=== PATIENT | male | born 2000 | race Caucasian/White ===

== ENCOUNTER 2021-02-09 12:17 | Emergency (ER) | payer OTHER, SELFPAY ==
--- NOTE | ~2021-02-09 | CT_ITS ---
EXAMINATION: CT ABDOMEN AND PELVIS WITH CONTRAST CLINICAL INFORMATION: Right-sided abdominal pain. COMPARISON: None TECHNIQUE: Multidetector volumetric images were obtained from the superior aspect of the liver through the pubic symphysis following administration 85 mL of Omnipaque 350 intravenous contrast. Sagittal and coronal reformatted images were obtained on the technologist's workstation. Oral contrast: No This CT examination was performed using dose optimization techniques as appropriate, variously including the following: *Automated exposure control *Adjustment of mA and/or kV according to patient size (this includes techniques or standardized protocols for targeted exams where dose is matched to indication/reason for exam; i.e. extremities or head) *Use of iterative reconstruction technique DLP: 536 mGy-cm FINDINGS: LUNG BASES: The heart size is normal. The lung bases are clear. LIVER, GALLBLADDER, AND BILIARY TREE: The liver is normal in size, shape, and attenuation. No focal hepatic lesion or biliary ductal dilatation is present. The gallbladder is unremarkable with no evidence of radiopaque gallstones, gallbladder wall thickening, or obvious pericholecystic inflammatory changes. PANCREAS: Unremarkable. SPLEEN: Unremarkable. ADRENAL GLANDS: Unremarkable. KIDNEYS AND URETERS: The kidneys are normal in size, shape, and attenuation. No hydronephrosis, hydroureter, or calculi seen. No perinephric stranding. BLADDER: The urinary bladder is distended with no radiopaque calculi. GASTROINTESTINAL TRACT: There is scattered stool and gas seen ascending and transverse colon without distention. The small bowel loops are normal caliber. Appendix is not seen with certainty. There is no obstruction or inflammatory process seen. ABDOMINAL WALL: A small hiatal hernia containing fat is noted. LYMPH NODES: Normal. VASCULAR: Unremarkable. PELVIC VISCERA: The prostate is normal size. The periprostatic fat planes are preserved. No abnormal pelvic or inguinal lymph nodes seen. OSSEOUS STRUCTURES: No lytic or sclerotic process seen. CT/CT abdomen pelvis w con IMPRESSION: Mild constipation with most of the stool in the right abdomen. No obstruction seen. Appendix not seen. Distended urinary bladder with mild prostate enlargement. No radiopaque urolith or hydroureteronephrosis. Mildly dilated urinary bladder.
[2021-02-09 12:20] VITALS: BP 115/76; PULSE 79; RESP 18; TEMP 36.5; O2SAT 99; BMI 27.4
--- NOTE | 2021-02-09 13:00 | ED.ABDPAIN ---
HPI - Abdominal Pain General Chief Complaint: Abdominal Pain Stated Complaint: Abd pain Time Seen by Provider: 02/09/21 12:58 Source: patient Mode of arrival: ambulatory Limitations: no limitations History of Present Illness HPI narrative: THIS IS A 21 YEARS OLD MALE PRESENTED TO THE EMERGENCY DEPARTMENT COMPLAINING OF LOWER ABDOMINAL PAIN SINCE YESTERDAY DENIES THAT THE VOMITING ANY DIARRHEA MD elicited complaint: abdominal pain Pertinent past history: none Onset (ago): day(s) (1) Pain Consistency: constant Location: RLQ and LLQ Severity: moderate Quality: cramping Radiation: LLQ and RLQ Migration to: no migration Exacerbating factors: nothing Relieving factors: nothing Related Data Allergies Allergy/AdvReac Type Severity Reaction Status Date / Time No Known Allergies Allergy Verified 02/09/21 12:19 Review of Systems Review of Systems Yes all other systems are reviewed and are negative Constitutional: Reports no additional constitutional complaints Reports system reviewed and no additional complaints, except as documented Cardiovascular: Denies chest pain Respiratory: Denies cough Gastrointestinal: Reports no additional gastrointestinal complaints Musculoskeletal: Reports no additional musculoskeletal complaints Skin/Breast: Reports system reviewed and no additional complaints, except as docu Reports system reviewed and no additional complaints, except as documented Psychiatric: Reports no additional psychiatric complaints Endocrine: Reports no additional endocrine complaints Physical Exam Vital Signs: Vital Signs: Last Vital Signs Temp 97.7 F 02/09/21 12:20 Pulse 81 02/09/21 15:10 Resp 16 02/09/21 15:10 BP 122/69 02/09/21 15:10 Pulse Ox 100 02/09/21 15:10 Body Mass Index 27.4 Const: General: cooperative and healthy appearing HENMT: Head: Yes normal to inspection Face and sinus: Yes normal facial exam Mouth: Normal oral and palatal mucosa present Neck: Neck: Yes normal visual inspection Chest: Chest palpation & inspection: normal inspection of the chest Resp: Effort & Inspection: normal respiratory effort Auscultation: clear to auscultation bilaterally Cardio: Jugular venous distension: no JVD Rhythm: regular rhythm GI: Inspection: Yes normal to inspection Palpation (GI): Soft to palpation, not firm, nontender and no guarding Auscultation: normal bowel sounds Course Course Course Narrative: still c/o pain ct negative at this time will sign out to Dr Lim Discharge Plan Discharge Clinical Impression: Abdominal pain PMFSH Past Medical History PMFSH Narrative: PATIENT DENIES ANY MAJOR MEDICAL PROBLEM HE DOES NOT TAKE ANY MEDICINES Medical History Asthma Social History Social History Patient Tobacco Use Status: Never used Tobacco Smoked in Last 30 Days: No Use of substances other than those prescribed or required for medical reasons: No Advance Directives: No Advance Directives Information Provided: No
[2021-02-09] MEDS: Morphine Sulfate 4 MG/ML CARTRIDGE IVPUSH (13:29)
[2021-02-09] MEDS: 0.9 % Sodium Chloride 1,000 ML 999 ML IVCONT (13:30)
[2021-02-09 13:44] LABS: MANUAL DIFF FLAG NO
[2021-02-09 13:49] LABS: Basophils Absolute Auto 0.1 X10*3/uL (0.0-0.2); Basophils Percent Auto 0.5 % (0-2); Eosinophils Absolute Auto 0.4 X10*3/uL (0.0-0.4); Eosinophils Percent Auto 3.8 % (0-4); Hematocrit 43.6 % (42-52); Imm Gran Abs Auto 0.05 X10*3/uL (0.00-0.03); Imm Gran Pct Auto 0.5 % (0.0-0.4); Lymphocytes Absolute Auto 1.8 X10*3/uL (1.2-4.9); Lymphocytes Percent Auto 16.9 % (20-40); Mean Corpuscular HGB Conc 34.4 g/dl (31.0-36.0); Mean Corpuscular Volume 87.2 fL (80-98); Mean Platelet Volume 10.2 fL (9.4-12.4); Monocytes Percent Auto 9.8 % (2-11); Neutrophils Absolute Auto 7.1 X10*3/uL (2.0-8.3); Neutrophils Percent Auto 68.5 % (45-73); Platelet Count 224 X10*3/uL (160-400); Red Cell Distribution Width 12.1 % (11.0-16.0); White Blood Count 10.4 X10*3/uL (4.8-10.8)
[2021-02-09 13:52] LABS: Glucose Urine UA NEG (NEG); Leukocyte Esterase Urine NEG (NEG); Nitrite Urine NEG (NEG); PH 7.5 (5.0-8.0); UACC Culture Trigger NO; Urine Blood 1+ (NEG); Urine Ketones NEG (NEG); Urine Protein NEG (NEG-TRACE)
[2021-02-09 14:08] LABS: Alanine Aminotransferase 20 U/L (0-40); Albumin Level 4.9 g/dL (3.5-5.0); Alkaline Phosphatase 79 U/L (39-117); Anion Gap 14 (12-20); Aspartate Amino Transferase 16 U/L (5-37); Bilirubin Total 0.5 mg/dL (0.0-1.0); Blood Urea Nitrogen 10 mg/dL (9-16); Calcium 9.6 mg/dL (8.4-10.2); Carbon Dioxide 26 mmol/L (22-29); Chloride 103 mmol/L (96-108); Creatinine Clr Calc Pharmacy 123.4; Estimated Glomerular Filt Rate > 60; Glucose Random 91 mg/dL (60-115); Lipase 14 U/L (8-78); Potassium 4.1 mmol/L (3.3-5.1); Sodium 139 mmol/L (135-145); Total Protein 7.8 g/dL (6.5-8.0)
[2021-02-09 14:12] LABS: Appearance Urine HAZY; Color Urine YELLOW
[2021-02-09 14:14] LABS: Mucus Urine 1+ /LPF; WBC Urine 0 /HPF (0-4)
[2021-02-09] MEDS: iohexoL 350 MG/ML 100 ML INFUS..BTL IV (14:47)
[2021-02-09 15:10] VITALS: BP 122/69; PULSE 81; RESP 16; O2SAT 100
--- NOTE | 2021-02-09 15:13 | PC.NURSE ---
PT RPOS PAIN/ NAUSEA RESOLVED WITH MOP. WAITITNG ON CT RESULTS. PT AWARE OF PLAN FOR CARE. VSS
[2021-02-09] MEDS: Magnesium Hydrox/Alum Hydrox 30 ML ORAL.SUSP PO (16:39)
[2021-02-09] MEDS: Pantoprazole Sodium 40 MG/10 ML VIAL IVPUSH (16:39)
== END 2021-02-09 18:13 | disposition home or self-care (01) ==
PROVIDERS: Emergency Medicine; Emergency Provider Emergency Medicine Emergency Medical Services
DX: K29.70 Gastritis, unspecified, without bleeding (principal)
CPT/HCPCS: 36415; 74177; 80053; 81001; 83690; 85025; 96361; 96374; 96375; 99284; J2270; J2405; Q9967

== ENCOUNTER 2021-09-23 10:57 | Emergency (ER) | payer OTHER, SELFPAY ==
[2021-09-23 12:08] VITALS: BP 147/61; PULSE 72; RESP 19; TEMP 37.1; O2SAT 97; BMI 26.9
[2021-09-23 13:31] LABS: Appearance Urine CLEAR; Color Urine YELLOW; Glucose Urine UA NEG (NEG); Leukocyte Esterase Urine NEG (NEG); Nitrite Urine NEG (NEG); PH 5.5 (5.0-8.0); Specific Gravity - Urine >= 1.030 (1.005-1.025); UACC Culture Trigger NO; Urine Blood 2+ (NEG); Urine Ketones NEG (NEG); Urine Protein NEG (NEG-TRACE)
[2021-09-23 13:51] LABS: WBC Urine 0 /HPF (0-4)
== END 2021-09-23 15:32 | disposition left against medical advice (07) ==
PROVIDERS: Emergency Provider Emergency Medicine
DX: R10.9 Unspecified abdominal pain (principal)
CPT/HCPCS: 81001; 99282; 99283

== ENCOUNTER 2021-12-19 07:53 | Emergency (ER) | payer OTHER, SELFPAY ==
--- NOTE | 2021-12-19 08:22 | ED.GENADULT ---
HPI - General Adult General Chief complaint: Upper Respiratory Symptoms Stated complaint: sore throat , weakness, body aches, fever Time Seen by Provider: 12/19/21 08:17 Source: patient Mode of arrival: ambulatory Limitations: no limitations History of Present Illness HPI narrative: 21 y/o male presents to the ER for evaluation of sore throat, generalized weakness, body aches and subjective fever that started last night. He denies any known sick contacts. He is vaccinated for COVID. He feels like his throat is closing because of the pain. It hurts to swallow and eat. He has been able to drink oral fluids. He denies any cough, shortness of breath, chest pain. No nausea, vomiting, diarrhea or abdominal pain. MD complaint: Sore throat Onset (ago): day(s) (1) Location: mouth Radiation: non-radiation Severity: moderate Severity scale (1-10): 6 Quality: stabbing and aching Pain Consistency: constant Relieving factors: none Exacerbating factors: eating Associated symptoms: fever/chills, headaches, loss of appetite, malaise and weakness Treatments prior to arrival: none Related Data Previous Rx's Medication Instructions Recorded amoxicillin 500 mg tablet 500 mg PO Q12H 10 days #20 tabs 12/19/21 Allergies Allergy/AdvReac Type Severity Reaction Status Date / Time No Known Allergies Allergy Verified 02/09/21 12:19 Review of Systems Review of Systems: Constitutional: + Fever, + Chills ENT/Mouth: + sore throat, No Rhinorrhea, + Swallowing Difficulty Eyes: No Eye Pain, No Swelling, No Redness Cardiovascular: No Chest Pain, No SOB, No Orthopnea, No Edema Respiratory: No Cough, No Sputum, No Wheezing, No dyspnea Gastrointestinal: No Nausea, No Vomiting, No Diarrhea, No abdominal Pain Genitourinary: No Dysuria, No Urinary Frequency, No Hematuria Musculoskeletal: No joint pain, + Myalgias Skin: No Skin Lesions, No rash Neuro: +Weakness, No Numbness, No Dizziness, + Headache Heme/Lymph: No Bruising, No Lymphadenopathy PMFSH Past Medical History Medical History Asthma Social History Social History Patient Tobacco Use Status: Never used Tobacco Advance Directives: No Advance Directives Information Provided: No Physical Exam ED Vital Signs: Vital Signs - 24 hr 12/19/21 08:43 Temperature 99.1 F Pulse Rate 95 Respiratory Rate 16 Blood Pressure 145/77 H Pulse Oximetry 99 Oxygen Delivery Method Room Air BMI result Body Mass Index 28.3 Appearance: Alert. Oriented X3. No acute distress. Eyes: Pupils equal, round and reactive to light. ENT: Pharynx with moist mucous membranes. There is bilateral tonsillar enlargement and erythema without exudate. Uvula is midline. Normal voice and handling secretions normally. Neck: Normal inspection. Neck supple. No lymphadenopathy. CVS: Normal heart rate and rhythm. Pulses normal. Respiratory: No respiratory distress. Breath sounds normal. Skin: Skin warm and dry. Normal skin color. Normal skin turgor. No rashes. Extremities: No lower extremity edema. Neuro: Oriented X 3. Grossly normal, nonfocal Course Course Course Narrative: 21-year-old otherwise healthy male presents to the ER with sore throat, body aches, weakness and subjective fevers that started last night. On arrival to the ER he is afebrile, SpO2 99% on room air. His examination is consistent with streptococcal pharyngitis. Will swab for strep, will also check for COVID and influenza. He has been ordered for lidocaine and Motrin for his pain. He is able to tolerate p.o.. Reevaluation(s) Reevaluation #1: Strep is positive. Negative for COVID and flu. Stable for discharge home on p.o. amoxicillin. Medical Decision Making Lab Data Labs: Lab Results 12/19/21 12/19/21 12/19/21 Range/Units 08:33 08:33 08:33 COVID-19 (JAMES) Negative (Negative) COVID-19 Clin Com See Note Influenza Type A (DAMION) Negative (Negative) Influenza Type B (DAMION) Negative (Negative) Influenza A & B Note See Note S. pyogenes GrpA DAMION Positive A (Negative) Discharge Plan Discharge Clinical Impression: Acute streptococcal pharyngitis Patient Disposition: Home, Self-Care Instructions: Strep Throat (ED) Additional Instructions: You tested positive for Strep throat. Take the prescribed antibiotic as directed, complete the entire course. Use warm salt water gargles several times per day Recommend over the counter Chloraseptic spray or Cepacol lozenges to help numb the back of your throat Take Motrin and/or Tylenol as needed for fevers, pain and body aches Rest and drink plenty of fluids. If you develop new or worsening symptoms call 911 or come back to the ER for further evaluation. Prescriptions: New amoxicillin 500 mg tablet 500 mg PO Q12H 10 Days Qty: 20 0RF Stand Alone Forms: Work/School Release Interventions: ED Discharge Assessment Last Done: 12/19/21 09:21 Discharge Date/Time: 12/19/21 09:22
[2021-12-19 08:43] VITALS: BP 145/77; PULSE 95; RESP 16; TEMP 37.3; O2SAT 99; BMI 28.3
[2021-12-19 08:46] LABS: Strep A Nucleic Acid Positive (Negative)
[2021-12-19 08:59] LABS: COVID-19 Test Negative (Negative); IDNOW Serial# 55D5AD1C; IDNOW Serial# 9DB6401D
[2021-12-19 09:00] LABS: Influenza A Negative (Negative); Influenza B2 Negative (Negative)
[2021-12-19] MEDS: Amoxicillin 500 MG CAPSULE PO (09:01)
[2021-12-19] MEDS: Ibuprofen 600 MG TABLET PO (09:01)
[2021-12-19] MEDS: Lidocaine HCl Viscous 2 % 15 ML SOLUTION MUCOUS MEM (09:01)
== END 2021-12-19 09:22 | disposition home or self-care (01) ==
PROVIDERS: Physician Assistant; Emergency Provider Emergency Medicine
DX: J02.0 Streptococcal pharyngitis (principal); Z20.822 Contact with and (suspected) exposure to COVID-19; R50.9 Fever, unspecified
CPT/HCPCS: 87502; 87635; 87651; 99283

== ENCOUNTER 2022-09-21 10:57 | Emergency (ER) | payer OTHER, SELFPAY ==
--- NOTE | ~2022-09-21 | XR_ITS ---
EXAMINATION: XR CHEST CLINICAL INFORMATION: Productive cough COMPARISON: None TECHNIQUE: 2 views of the chest were obtained. FINDINGS: No significant abnormality is noted involving the heart, lungs, mediastinum, bony thorax or soft tissues. XR/XR chest 2V IMPRESSION: Unremarkable examination.
[2022-09-21 11:04] VITALS: BP 126/63; PULSE 73; RESP 16; TEMP 36.3; O2SAT 98; BMI 28.3
--- NOTE | 2022-09-21 11:06 | ED.URI ---
HPI - URI/Sore Throat General Chief Complaint: Upper Respiratory Symptoms <JOSIE Julien - Last Filed: 09/21/22 11:10> Stated Complaint: Blood in mucus <JOSIE Julien - Last Filed: 09/21/22 11:10> Time Seen by Provider: 09/21/22 11:46 <JOISE Julien - Last Filed: 09/21/22 11:10> Source: patient <JOSIE Castillo - Last Filed: 09/21/22 16:42> Mode of arrival: ambulatory <JOSIE Castillo Last Filed: 09/21/22 16:42> Limitations: no limitations <JOSIE Castillo Last Filed: 09/21/22 16:42> History of Present Illness HPI Narrative: 22 y.o male with a PMHx of asthma who presents to the ED c/o productive cough and nasal congestion x3 weeks with intermittent blood streaks in sputum x3 days. Endorses some chest pain associated with coughing. Denies fevers, chills, body aches, chest pain, SOB, abdominal pain, vomiting, diarrhea, or known sick contacts. Endorses recent travel to [place] but symptoms started prior to trip. <JOSIE Castillo - Last Filed: 09/21/22 16:42> MD elicited complaint: cough <JOSIE Castillo - Last Filed: 09/21/22 16:42> Onset (ago): week(s) <JOSIE Castillo Last Filed: 09/21/22 16:42> Related Data Home Medications: Previous Rx's Medication Instructions Recorded amoxicillin 500 mg tablet 500 mg PO Q12H 10 days #20 tabs 12/19/21 benzonatate 100 mg capsule 100 mg PO TID PRN cough #14 caps 09/21/22 fluticasone propionate 50 2 spray intranasal DAILY #16 grams 09/21/22 mcg/actuation nasal spray,suspension (Flonase Allergy Relief) prednisone 20 mg tablet 40 mg PO DAILY 5 days #10 tabs 09/21/22 <JOSIE Julien Last Filed: 09/21/22 11:10> Allergies/Adverse Reactions: Allergies Allergy/AdvReac Type Severity Reaction Status Date / Time No Known Allergies Allergy Verified 02/09/21 12:19 <JOSIE Julien - Last Filed: 09/21/22 11:10> Review of Systems Review of Systems: Constitutional: No Fever, No Chills ENT/Mouth: No Ear Pain, +Nasal Congestion, No Sinus Pain, No Hoarseness, No sore throat, +Rhinorrhea Cardiovascular: +Chest Pain associated with coughing, No SOB Respiratory: +Cough, +Sputum with intermittent blood streaks, No Wheezing Gastrointestinal: No Nausea, No Vomiting, No Diarrhea, No Constipation, No Abdominal pain Genitourinary: No Dysuria, No Urinary Frequency, No Hematuria Musculoskeletal: No Joint Pain, No Myalgias Skin: No Skin Lesions, No rash Neuro: No Weakness, No Numbness, No Paresthesias <JOSIE Castillo - Last Filed: 09/21/22 16:42> Yes all other systems are reviewed and are negative <JOSIE Castillo - Last Filed: 09/21/22 16:42> Constitutional: Constitutional: Reports as per HPI <JOSIE Castillo - Last Filed: 09/21/22 16:42> [facility] Past Medical History Attestation statement: The following information was validated with the patient. <JOSIE Castillo - Last Filed: 09/21/22 16:42> Medical History: Medical History Asthma <JOSIE Julien - Last Filed: 09/21/22 11:10> Social History Social History: Social History Patient Tobacco Use Status: Never used Tobacco Advance Directives: No Advance Directives Information Provided: No <JOSIE Julien - Last Filed: 09/21/22 11:10> Physical Exam Vital Signs: Vital Signs: Last Vital Signs Temp 97.4 F 09/21/22 11:04 Pulse 73 09/21/22 11:04 Resp 16 09/21/22 11:04 BP 126/63 09/21/22 11:04 Pulse Ox 98 09/21/22 11:04 O2 Del Method 09/21/22 11:04 BMI result Body Mass Index 28.3 <JOSIE Julien Last Filed: 09/21/22 11:10> Vital Signs: Last Vital Signs Temp 97.4 F 09/21/22 11:04 Pulse 73 09/21/22 11:04 Resp 16 09/21/22 11:04 BP 126/63 09/21/22 11:04 Pulse Ox 98 09/21/22 11:04 O2 Del Method 09/21/22 11:04 BMI result Body Mass Index 28.3 <JOSIE Castillo - Last Filed: 09/21/22 16:42> Const: General: cooperative, healthy appearing and no acute distress <JOSIE Castillo - Last Filed: 09/21/22 16:42> Orientation/consciousness: patient oriented x3 <JOSIE Castillo - Last Filed: 09/21/22 16:42> Limitations: no limitations <JOSIE Castillo Last Filed: 09/21/22 16:42> HEENT: Head: Yes normal to inspection and Yes atraumatic <JOSIE Castillo - Last Filed: 09/21/22 16:42> Ears: hearing grossly normal bilaterally and TM's normal bilaterally <JOSIE Castillo - Last Filed: 09/21/22 16:42> General nose exam: Normal external nose present <JOSIE Castillo Last Filed: 09/21/22 16:42> Face and sinus: Yes normal facial exam <JOSIE Castillo - Last Filed: 09/21/22 16:42> Throat: Yes posterior oropharynx normal (Mildly enlarged tonsils, no erythema/exudates), Yes uvula midline, No peritonsillar mass, No uvula laterally displaced and No uvular edema <JOSIE Castillo Last Filed: 09/21/22 16:42> Eyes: General: appearance normal, both eyes and all related structures <JOSIE Castillo - Last Filed: 09/21/22 16:42> Pupils: Equal, round and reactive pupils present <JOSIE Castillo Last Filed: 09/21/22 16:42> EOM: EOMs intact bilaterally <JOSIE Castillo - Last Filed: 09/21/22 16:42> Neck: Neck: Yes normal visual inspection and Yes no meningeal signs <JOSIE Castillo - Last Filed: 09/21/22 16:42> Resp: Effort & Inspection: normal respiratory effort and no respiratory distress <JOSIE Castillo - Last Filed: 09/21/22 16:42> Auscultation: clear to auscultation bilaterally, no crackles, no rales, no rhonchi and no wheezes <JOSIE Castillo - Last Filed: 09/21/22 16:42> Cardio: Rate: regular rate <JOSIE Castillo - Last Filed: 09/21/22 16:42> Heart sounds: S1 normal heart sound present and S2 normal heart sound present <JSOIE Castillo - Last Filed: 09/21/22 16:42> GI: Palpation (GI): Soft to palpation, not firm, nontender and no guarding <JOSIE Castillo - Last Filed: 09/21/22 16:42> Skin: Rashes: no rashes <JOSIE Castillo - Last Filed: 09/21/22 16:42> Wounds: no wounds <JOSIE Castillo - Last Filed: 09/21/22 16:42> Neuro: General: patient oriented x3, tone normal and no meningeal signs <JOSIE Castillo - Last Filed: 09/21/22 16:42> Cranial nerves: Yes Equal, round and reactive pupils present <JOSIE Castillo - Last Filed: 09/21/22 16:42> Gait exam (Neuro): Normal gait present <JOSIE Castillo - Last Filed: 09/21/22 16:42> Extrem: General: Yes normal to inspection, Yes no pedal edema and Yes no calf tenderness <JOSIE Castillo - Last Filed: 09/21/22 16:42> Course Course Course Narrative: RME - 22 yo healthy male presents to the ER for evaluation of blood tinged sputum for the last 2 weeks. He has been sick for almost 3 weeks with nasal congestion, runny nose, productive cough with blood tinged sputum. Has been taking Mucinex. VSS in triage. Lungs are clear. He appears well, nontoxic. PERC negative. No SOB or chest pain. Most likely bronchitis. Plan: CXR and COVID swab <JOSIE Julien - Last Filed: 09/21/22 11:10> RME - 22 yo healthy male presents to the ER for evaluation of blood tinged sputum for the last 2 weeks. He has been sick for almost 3 weeks with nasal congestion, runny nose, productive cough with blood tinged sputum. Has been taking Mucinex. VSS in triage. Lungs are clear. He appears well, nontoxic. PERC negative. No SOB or chest pain. Most likely bronchitis. Plan: CXR and COVID swab -1257--COVID-19 negative. CXR unremarkable Results discussed with patient including worrisome signs and symptoms and strict return precautions, and when to return to the emergency department. They verbalized understanding and feel safe for discharge at this time. <JOSIE Castillo - Last Filed: 09/21/22 16:42> Medical Decision Making Medical Decision Making MDM Narrative: 22 y.o male with a PMHx of asthma who presents to the ED c/o productive cough and nasal congestion x3 weeks with intermittent blood streaks in sputum x3 days. On physical exam patient was well-appearing, in NAD, VSS. Lungs clear to auscultation bilaterally. Posterior oropharynx without erythema or tonsilar exudates. Concern for bronchitis vs pneumonia vs viral syndrome. Low suspicion for ACS, PE, malignancy, TB. Plan: Covid test negative, CXR Please refer to course for remaining clinical decision making, interpretation of labs/imaging results, and discussions with consultants and/or family members. <JOSIE Castillo Last Filed: 09/21/22 16:42> Differential Diagnosis Differential Diagnoses: The differential diagnosis associated with the presentation includes <JOSIE Castillo Last Filed: 09/21/22 16:42> As above <JOSIE Castillo Last Filed: 09/21/22 16:42> Admission/Observation Consideration of admission/observation: Escalation of care including admission/observation considered <JOSIE Castillo Last Filed: 09/21/22 16:42> Lab Data [facility] Lab Attestation statement: I reviewed the patient's lab results. <JOSIE Castillo Last Filed: 09/21/22 16:42> Labs: Lab Results 09/21/22 Range/Units 11:09 COVID-19 (JAMES) Negative (Negative) COVID-19 Clin Com See Note <JOSIE Julien - Last Filed: 09/21/22 11:10> Lab Results 09/21/22 Range/Units 11:09 COVID-19 (JAMES) Negative (Negative) COVID-19 Clin Com See Note <JOSIE Castillo - Last Filed: 09/21/22 16:42> Radiology Impression Discussion of test interpretation with radiology: I have reviewed the radiologist's reading. <JOSIE Castillo - Last Filed: 09/21/22 16:42> External Record Review External record reviewed: Inpatient record, Office record, Outpatient record, Prior outpatient labs, Prior outpatient radiology, Primary care record and Outside ED record <JOSIE Castillo - Last Filed: 09/21/22 16:42> Discharge Plan Discharge Clinical Impression: Bronchitis <JOSIE Julien - Last Filed: 09/21/22 11:10> Patient Disposition: Home, Self-Care <JOSIE Julien - Last Filed: 09/21/22 11:10> Instructions: Acute Bronchitis (ED) <JOSIE Julien - Last Filed: 09/21/22 11:10> Additional Instructions: you tested negative for COVID Your x-ray is unremarkable. Prednisone as a steroid please take as prescribed. In addition Flonase is a nasal decongestion [place] for cough Follow-up with her doctor If symptoms persist or worsen return to the ED <JOSIE Julien - Last Filed: 09/21/22 11:10> Prescriptions: New prednisone 20 mg tablet 40 mg PO DAILY 5 Days Qty: 10 0RF benzonatate 100 mg capsule 100 mg PO TID PRN (Reason: cough) Qty: 14 0RF fluticasone propionate [Flonase Allergy Relief] 50 mcg/actuation spray,suspension 2 spray intranasal DAILY Qty: 16 0RF Rx Instructions: administer into each nostril No Action amoxicillin 500 mg tablet 500 mg PO Q12H 10 Days Qty: 20 0RF <JOSIE Julien - Last Filed: 09/21/22 11:10> Referrals: Physician,None [Primary Care Provider] - 5 days <JOSIE Julien - Last Filed: 09/21/22 11:10> Interventions: ED Discharge Assessment Last Done: 09/21/22 13:05 <JOSIE Julien - Last Filed: 09/21/22 11:10> Discharge Date/Time: 09/21/22 13:06 <JOSIE Julien - Last Filed: 09/21/22 11:10>
[2022-09-21 11:41] LABS: IDNOW Serial# 16C4AD1C
[2022-09-21 11:42] LABS: COVID-19 Test Negative (Negative)
== END 2022-09-21 13:06 | disposition home or self-care (01) ==
PROVIDERS: Physician Assistant; Emergency Provider Student in an Organized Health Care Education/Training Program
DX: J40 Bronchitis, not specified as acute or chronic (principal); R07.89 Other chest pain; R05.9 Cough, unspecified; Z20.822 Contact with and (suspected) exposure to COVID-19; Z20.828 Contact with and (suspected) exposure to other viral communicable diseases; Z79.899 Other long term (current) drug therapy
CPT/HCPCS: 71046; 87635; 99282; 99283

== ENCOUNTER 2022-10-01 17:59 | Emergency (ER) | payer OTHER, SELFPAY | END 2022-10-01 18:53 | disposition left against medical advice (07) | PROVIDERS: Emergency Provider Internal Medicine | DX: H91.92 Unspecified hearing loss, left ear (principal) ==

== ENCOUNTER 2023-01-25 08:47 | Emergency (ER) | payer OTHER, SELFPAY ==
[2023-01-25 09:15] VITALS: BP 121/66; PULSE 80; RESP 16; TEMP 36.7; O2SAT 96; BMI 29.9
--- NOTE | 2023-01-25 09:38 | ED_ITS ---
HPI - Dental/Oral General Chief complaint: Dental/Oral Stated complaint: wisdom teeth removal 01/23, still bleeding Time Seen by Provider: 01/25/23 09:12 Source: patient Mode of arrival: ambulatory Limitations: no limitations History of Present Illness HPI Narrative: Patient is a 22 old male who presents emergency department for evaluation. He had his right upper and lower wisdom teeth extracted 2 days ago 01/23/2023. He presents today because he has noticed he is still having a small amount of blood tinged sputum and discomfort 09/19. He was concerned about potentially developing an infection or dry socket. He contacted the dental office and spoke with the on-call personnel, he has an appointment scheduled for 01/27/2023 for re-evaluation. He states he came here today because he wanted to make sure he got ahead of things if there was any infection or dry socket. He denies fevers, chills, copious bleeding, pain extending up towards the ear down into the jaw/neck, foul taste in the mouth, inability to swallow. Teeth map: 1. Dark red clot present in socket without surrounding erythema or edema 2. Dark red clot present in socket without surrounding erythema or edema Related Data Previous Rx's Medication Instructions Recorded amoxicillin 500 mg tablet 500 mg PO Q12H 10 days #20 tabs 12/19/21 benzonatate 100 mg capsule 100 mg PO TID PRN cough #14 caps 09/21/22 fluticasone propionate 50 2 spray intranasal DAILY #16 grams 09/21/22 mcg/actuation nasal spray,suspension (Flonase Allergy Relief) prednisone 20 mg tablet 40 mg PO DAILY 5 days #10 tabs 09/21/22 Allergies Allergy/AdvReac Type Severity Reaction Status Date / Time No Known Allergies Allergy Verified 02/09/21 12:19 Review of Systems Review of Systems: Yes all other systems are reviewed and are negative PMFSH Past Medical History Attestation statement: The following information was validated with the patient. Source: old records reviewed Medical History Asthma Social History Social History Patient Tobacco Use Status: Never used Tobacco Advance Directives: No Advance Directives Information Provided: Yes Physical Exam Vital Signs: Vital Signs: Last Vital Signs Temp 98.0 F 01/25/23 09:15 Pulse 80 01/25/23 09:15 Resp 16 01/25/23 09:15 BP 121/66 01/25/23 09:15 Pulse Ox 96 01/25/23 09:15 O2 Del Method Room Air 01/25/23 09:15 BMI result Body Mass Index 29.9 Appearance: Alert.?Oriented to person, place and time. No acute distress.?Normal affect. Eyes: Pupils equal, round and reactive to light.? ENT: Pharynx normal.? #1 and #32 Dark red clot present in socket without surrounding erythema or edema? Neck: Normal inspection.? Neck supple.?? CVS: Heart sounds normal. Normal heart rate and rhythm.? Pulses normal.?? Respiratory: No respiratory distress.? Lung sounds clear to auscultation bilaterally?? Abdomen: Soft and non-tender. ?? Skin: Skin warm and dry.? Normal skin color.? Extremities: No lower extremity edema.? Neuro: Moves all extremities spontaneously. Sensation intact bilaterally. No focal neuro deficits. Ambulates with normal steady gait. Medical Decision Making Medical Decision Making MDM Narrative: patient is a 22 old male presents emergency department for evaluation of blood- tinged sputum persisting for 2 days after wisdom tooth extraction. At the time my examination he is overall well-appearing, nontoxic, afebrile. Examination the oral cavity reveals findings consistent with normal healing after extraction, clot present to the socket without evidence of infection or alveolar osteitis at this time. There is no active bleeding during my examination. He is currently on amoxicillin prophylactically after his procedure and has follow- up with his dentist in 2 days. We discussed worrisome signs and symptoms that would warrant re-evaluation in the emergency department. Advised to continue prophylactic antibiotic and treatment as per his dentist recommendations. At this time he is stable for discharge. Differential Diagnosis Differential Diagnoses: The differential diagnosis associated with the presentation includes ( dental infection, dental abscess, alveolar osteitis) Tests considered The following testing was considered but not selected: Considered serum labs and CT imaging of the soft tissue neck to evaluate for dental abscess, however after physical examination did not feel that this was required therefore deferred Prescription Management I considered prescription management with: Other I considered prescription management with antibiotic however he is already prescribed them outpatient, pain management at this time appropriate with acetaminophen/ ibuprofen Discharge Plan Discharge Clinical Impression: H/O wisdom tooth extraction Patient Disposition: Home, Self-Care Instructions: Dry Socket (ED) Additional Instructions: please review the instructions provided regarding dry socket. At this time your examination does not appear consistent with a dry socket. This is very reassuring. Please continue taking your antibiotics as prescribed by your dentist And follow-up in their office on Thursday as scheduled. Return to emergency any new worsening symptoms or concerns. Prescriptions: No Action amoxicillin 500 mg tablet 500 mg PO Q12H 10 Days Qty: 20 0RF prednisone 20 mg tablet 40 mg PO DAILY 5 Days Qty: 10 0RF benzonatate 100 mg capsule 100 mg PO TID PRN (Reason: cough) Qty: 14 0RF fluticasone propionate [Flonase Allergy Relief] 50 mcg/actuation spray,suspension 2 spray intranasal DAILY Qty: 16 0RF Rx Instructions: administer into each nostril Referrals: Physician,None [Primary Care Provider] -
== END 2023-01-25 10:25 | disposition home or self-care (01) ==
PROVIDERS: Emergency Provider Student in an Organized Health Care Education/Training Program
DX: K08.89 Other specified disorders of teeth and supporting structures (principal)
CPT/HCPCS: 99283